=== PATIENT | female | born 1990 | race Caucasian/White ===

== ENCOUNTER 2024-08-05 17:09 | Observation (INO) | payer BC, SELFPAY ==
[2024-08-05 17:16] VITALS: BP 125/78; BMI 32.1
== END 2024-08-05 20:05 | disposition home or self-care (01) ==
LOC: LDRP 17:09
PROVIDERS: ADMITTING PHYSICIAN Obstetrics & Gynecology; FAMILY PHYSICIAN Family Medicine
DX: O36.8130 Decreased fetal movements, third trimester, not applicable or unspecified (principal); Z3A.39 39 weeks gestation of pregnancy; M46.1 Sacroiliitis, not elsewhere classified; Z14.8 Genetic carrier of other disease
CPT/HCPCS: 76805; 36415; 86850; 86900; 86901; G0378

== ENCOUNTER 2024-08-07 19:38 | Inpatient (IN) | payer BC, SELFPAY ==
[2024-08-07 19:45] VITALS: BMI 31.1
[2024-08-07 20:18] LABS: % Basophils 0.3 % (0-2); % Eosinophils 0.8 % (0-6); % Immature Granulocytes 0.5 % (0-0.5); % Monocytes 9.9 % (1.7-9.3); % Neutrophils 71.5 % (42.2-75.2); Absolute Eosinophils 0.1 10^3/uL (0-0.7); Absolute Immature Granulocytes 0.1 10^3/uL (0-0.05); Absolute Lymphocytes 1.8 10^3/uL (1.2-3.4); Absolute Neutrophils 7.4 10^3/uL (1.4-6.5); Hematocrit 36.3 % (37.0-47.0); Hemoglobin 12.7 g/dL (12.0-16.0); Mean Corpuscular Hgb 30.7 pg (27.0-31.0); Mean Corpuscular Volume 87.7 fL (81.0-99.0); Mean Platelet Volume 8.7 fL (7.4-10.4); Nucleated Red Blood Cells % 0 %; Platelet Count 211 10^3/uL (130-400); Red Blood Cell Count 4.14 10^6/uL (4.20-5.40); Red Cell Dist. Width 13.4 % (11.5-14.5); White Blood Cell Count 10.3 10^3/uL (4.8-10.8)
[2024-08-07 20:19] VITALS: BP 107/65
[2024-08-07] MEDS: CYTOTEC 50 MICROGRAM PO (20:27)
[2024-08-07] MEDS: LR 1000 IV (22:45)
[2024-08-07] MEDS: CYTOTEC PO (23:22)
[2024-08-08] MEDS: PITOCIN 30 UNITS/NSS 500 ML IV (00:37)
[2024-08-08] MEDS: CYTOTEC PO (04:08)
[2024-08-08] MEDS: FENTANYL/BUPIVACAINE 100 EPIDURAL (04:25)
[2024-08-08] MEDS: SUBLIMAZE 100 MCG EPIDURAL (04:25)
[2024-08-08] MEDS: MOTRIN 600 MG PO (18:21)
[2024-08-08] MEDS: SENOKOT-S 1 TABLET PO (18:21)
[2024-08-09 05:33] LABS: Hematocrit 38.7 % (37.0-47.0); Hemoglobin 13.4 g/dL (12.0-16.0)
[2024-08-09] MEDS: MOTRIN 600 MG PO (06:41)
[2024-08-10 11:59] LABS: Syphilis/T. pallidum Ab Reflex Negative (Negative)
== END 2024-08-09 14:22 | disposition home or self-care (01) | DRG 807 ==
LOC: LDRP 19:38
PROVIDERS: Obstetrics & Gynecology; ADMITTING PHYSICIAN Obstetrics & Gynecology
PROC: 3E0P7VZ Introduction of Hormone into Female Reproductive, Via Natural or Artificial Opening (ICD-10-PCS; 2024-08-07)
PROC: 10E0XZZ Delivery of Products of Conception, External Approach (ICD-10-PCS; 2024-08-08)
DX: O48.0 Post-term pregnancy (principal); Z37.0 Single live birth; Z3A.40 40 weeks gestation of pregnancy; M46.1 Sacroiliitis, not elsewhere classified; O99.892 Other specified diseases and conditions complicating childbirth
CPT/HCPCS: 85014; 85018; 85025; 86780; 86850; 86900; 86901